=== PATIENT | female | born 1955 | race Caucasian/White ===

== ENCOUNTER → 2023-07-01 08:50 | Outpatient (CLI) | payer MEDICARE, OTHER, SELFPAY ==
--- NOTE | 2023-07-01 08:53 | DI.RAD.S_ITS ---
PROCEDURE: XR CERVICAL SPINE 4V OR 5V INDICATIONS: NECK PAIN TECHNIQUE: 5 views of the cervical spine acquired. COMPARISON: None. FINDINGS: Bones: Lateral masses of C1 are poorly seen on the frontal view due to overlying soft tissues.No fractures or dislocations to the T1 level. Oblique images demonstrate no bony foraminal stenoses. Mild disc space narrowing is seen at C5-C6 with endplate sclerosis and osteophytes representing DJD. Soft tissues: No prevertebral soft tissue swelling. IMPRESSION: 1. Somewhat limited evaluation of C1 on the frontal view 2. DJD at C5-C6 Dictated by: Paul Joyner M.D. on 07/01/2023 at 14:38 Approved by: Paul Joyner M.D. on 07/01/2023 at 14:41
--- NOTE | 2023-07-01 08:53 | DI.RAD.S_ITS ---
PROCEDURE: XR LUMBAR SPINE MIN 4V INDICATIONS: LOW BACK PAIN TECHNIQUE: 5 views of the lumbar spine acquired including obliques COMPARISON: None. FINDINGS: Bones: 5 nonrib-bearing vertebrae are present. Dextroscoliosis of the lumbar spine is seen in this apex at L2.. No vertebral body compression fractures. No suspicious bony lesions. No evidence of spondylolisthesis. Soft tissues: Large amount of stool projects over the pelvis.. No suspicious soft tissue calcifications. IMPRESSION: Dextroscoliosis of the lumbar spine. Otherwise no acute osseous findings Dictated by: Paul Joyner M.D. on 07/01/2023 at 14:30 Approved by: Paul Joyner M.D. on 07/01/2023 at 14:36
== END ==
PROVIDERS: PCP Physician Assistant; Referring Provider Anesthesiology; Visit Provider Anesthesiology
DX: M54.16 Radiculopathy, lumbar region (principal); M47.22 Other spondylosis with radiculopathy, cervical region; M54.2 Cervicalgia; M41.9 Scoliosis, unspecified; M54.9 Dorsalgia, unspecified; M54.6 Pain in thoracic spine; G89.29 Other chronic pain
CPT/HCPCS: 72050; 72110; 99214

== ENCOUNTER → 2023-07-08 07:27 | Outpatient (CLI) | payer MEDICARE, OTHER, SELFPAY ==
--- NOTE | 2023-07-08 07:29 | DI.MRI.S_ITS ---
PROCEDURE: MR LUMBAR SPINE WO/W CON INDICATIONS: Lumbar radiculopathy, h/o breast cancer TECHNIQUE: Noncontrast sagittal T1 spin echo and T2 fast spin echo, sagittal STIR, axial T1 and T2 fast spin echo through the lumbar spine. In cases with scoliosis, additional coronal T2 fast spin echo may be performed. After the administration of contrast, sagittal and axial T1 spin echo with fat saturation through the lumbar spine. COMPARISON: None. FINDINGS: Image quality: Excellent. Alignment and curvature: Grade 1 degenerative anterior spondylolisthesis L4-5 Marrow: Marrow is of normal overall signal. No acute vertebral body compression fractures. No suspicious marrow enhancement. Spinal cord: Conus medullaris terminates at the L1 level. Visualized spinal cord demonstrates normal signal, without suspicious enhancement. Paraspinous soft tissues: No paravertebral masses or abnormal enhancement. T12-L1: Normal appearance. L1-L2: Normal appearance. L2-L3: Normal appearance. L3-L4: Disc space narrowing and circumferential disc bulge with mild hypertrophic facet joints present. No central stenosis. Mild foraminal stenosis. L4-L5: Disc space narrowing and circumferential disc bulge with hypertrophic facet joints and ligamentum flavum laxity results in [id number] central stenosis. Moderate right and left foraminal stenosis. L5-S1: Disc space is preserved. Mild facet arthropathy present. No central or foraminal stenosis. IMPRESSION: Unremarkable marrow signal without evidence of metastatic disease. Mild degenerative disc disease and arthropathy. Approved by: Victoriano Acosta M.D. on 07/08/2023 at 12:57
--- NOTE | 2023-07-08 07:29 | DI.MRI.S_ITS ---
PROCEDURE: MR CERVICAL SPINE WO/W CON INDICATIONS: 68-year-old female with spinal pain and history of breast cancer status post chemotherapy TECHNIQUE: Noncontrast sagittal T1 spin echo and T2 fast spin echo, sagittal STIR, foraminal oblique sagittal T2 fast spin echo, axial gradient echo or T2 fast spin echo through the cervical spine. After the administration of contrast, axial and sagittal T1 spin echo with fat saturation through the cervical spine. COMPARISON: None. FINDINGS: Image quality: Excellent. Alignment and curvature: There is normal bony alignment. Marrow: Marrow is normal in overall signal, without suspicious enhancement. No evidence of metastatic disease Spinal cord: Visualized spinal cord has normal size and signal. No cerebellar tonsillar herniation. No abnormal intramedullary enhancement. Paraspinous soft tissues: No paravertebral masses or suspicious enhancement. C2-3: Normal appearance. C3-4: Normal appearance. C4-5: Normal appearance. C5-6: Mild disc space narrowing and arthropathy results in mild central stenosis. Hypertrophic facet joints contribute to moderate bilateral foraminal stenosis. C6-7: Disc height is preserved. No central or foraminal stenosis C7-T1: Disc height is preserved. No central or foraminal stenosis IMPRESSION: Normal marrow signal without evidence of metastatic disease. Mild degenerative disc disease and arthropathy at C5-6 results in moderate bilateral foraminal stenosis Approved by: Victoriano Acosta M.D. on 07/08/2023 at 12:28
--- NOTE | 2023-07-08 07:29 | DI.MRI.S_ITS ---
PROCEDURE: MR THORACIC SPINE WO/W CON INDICATIONS: 60-year-old female with spinal pain and history of breast cancer status post chemotherapy TECHNIQUE: Noncontrast sagittal T1 spin echo and T2 fast spin echo, sagittal STIR, axial T1 and T2 fast spin echo through the thoracic spine. After the administration of contrast, axial and sagittal T1 spin echo with fat saturation through the thoracic spine. COMPARISON: None. FINDINGS: Image quality: Excellent. Alignment and curvature: There is normal bony alignment. Marrow: Marrow is of normal overall signal. No acute vertebral body compression fractures. Spinal cord: Visualized spinal cord is of normal signal and size, without abnormal enhancement. Paraspinous soft tissues: No paravertebral masses or abnormal enhancement. Miscellaneous: Small central disc protrusions at T6-7 and T7-8 results in mild central stenosis. IMPRESSION: Mild degenerative disc disease at T6-7 and T7-8 No evidence of metastatic disease Approved by: Victoriano Acosta M.D. on 07/08/2023 at 12:35
== END ==
PROVIDERS: PCP Physician Assistant; Referring Provider Anesthesiology; Visit Provider Anesthesiology
DX: M50.122 Cervical disc disorder at C5-C6 level with radiculopathy (principal); M47.22 Other spondylosis with radiculopathy, cervical region; M48.02 Spinal stenosis, cervical region; M47.814 Spondylosis without myelopathy or radiculopathy, thoracic region; M51.16 Intervertebral disc disorders with radiculopathy, lumbar region; M47.26 Other spondylosis with radiculopathy, lumbar region; M47.27 Other spondylosis with radiculopathy, lumbosacral region; M54.9 Dorsalgia, unspecified
CPT/HCPCS: 72156; 72157; 72158; A9579